=== PATIENT | male | born 1950 | race Caucasian/White ===

== ENCOUNTER 2017-05-26 08:51 | Emergency (ER) | payer OTHER ==
[~2017-05-26] VITALS: Ht 182.9 cm; Wt 85.0 kg
[~2017-05-26 08:51] MED LIST: AZIT250T43 PO; BUPR100CR PO; DEPA500T3 PO; FURO20 PO; LISI-360 PO; POTA10TA48 PO; QUET1TAB65 PO; TRAZ50TA4 PO
[2017-05-26 08:53] VITALS: BP 179/99; PULSE 129; RESP 15; TEMP 98.9; O2SAT 99
[2017-05-26] MEDS ORDERED: BUPR1TAB74 (09:20)
[2017-05-26] MEDS ORDERED: DIVA500T3 PO (09:20)
[2017-05-26] MEDS ORDERED: CARB25TA9 PO (09:20)
[2017-05-26] MEDS ORDERED: LISI10TA3 PO (09:20)
[2017-05-26] MEDS ORDERED: MULTTAB67 PO (09:20)
[2017-05-26] MEDS ORDERED: LEVO50TA4 PO (09:20)
[2017-05-26] MEDS ORDERED: ACETAMINOPHEN/HYDROcodone 325 MG/5 MG TAB PO ONE (09:30)
--- NOTE | 2017-05-26 10:24 | RADRPT ---
EXAM DATE/TIME: 05/26/2017 09:40 [facility] COMPARISON: No previous studies available for comparison. INDICATIONS : Lumbar spine pain, fell MEDICAL HISTORY : None. SURGICAL HISTORY : None. ENCOUNTER: Initial ACUITY: 2 days PAIN SCORE: 9/10 LOCATION: Lumbar spine FINDINGS: Degenerative changes and mild scoliosis of the lumbar spine are noted. Mild compression deformities a re noted involving L5 and L4. No spondylolisthesis or spondylolysis is noted. CONCLUSION: 1. Mild compression deformities involving L5 and L4 of indeterminate ages. 2. Mild scoliosis and degenerative changes of the lumbar spine. Alfred Turpin MD on May 26, 2017 at 10:19 Board Certified Radiologist. This report was verified electronically.
--- NOTE | 2017-05-26 10:25 | RADRPT ---
EXAM DATE/TIME: 05/26/2017 09:40 [facility] COMPARISON: No previous studies available for comparison. INDICATIONS : Evaluate pelvis for trauma, fell MEDICAL HISTORY : None. SURGICAL HISTORY : None. ENCOUNTER: Initial ACUITY: 2 days PAIN SCORE: 0/10 LOCATION: Pelvis FINDINGS: No acute fracture or dislocation is noted. Mild degenerative changes are noted involving hip joints b ilaterally. Mild compression deformities involving L4 and L5 are noted. CONCLUSION: 1. No acute fracture or dislocation of the bony pelvis. 2. Mild compression deformities involving L4 and L5 vertebral bodies. 3. Mild degenerative changes involving the hips bilaterally. Alfred Turpin MD on May 26, 2017 at 10:22 Board Certified Radiologist. This report was verified electronically.
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
[2017-05-26] MEDS ORDERED: CALC200S NASAL (11:19)
[2017-05-26] MEDS ORDERED: TRAM50TA PO (11:19)
[2017-05-26] MEDS ORDERED: IBUP-232 PO (11:19)
[2017-05-26 11:39] VITALS: BP 146/93
== END 2017-05-26 11:40 | disposition home or self-care (01) ==
LOC: NEPD 08:51
DX: S32.040A Wedge compression fracture of fourth lumbar vertebra, initial encounter for closed fracture (principal); W19.XXXA Unspecified fall, initial encounter; Y93.89 Activity, other specified; Y92.199 Unspecified place in other specified residential institution as the place of occurrence of the external cause
CPT/HCPCS: 72110; 72170; 99283

== ENCOUNTER 2017-07-06 14:41 | Emergency (ER) | payer OTHER ==
[~2017-07-06] VITALS: Ht 182.9 cm; Wt 90.0 kg
[~2017-07-06 14:41] MED LIST changes: -AZIT250T43 PO; -BUPR100CR PO; +BUPR1TAB74; +CALC200S NASAL; +CARB25TA9 PO; -DEPA500T3 PO; +DIVA500T3 PO; -FURO20 PO; +IBUP-232 PO; +LEVO50TA4 PO; -LISI-360 PO; +LISI10TA3 PO; +MULTTAB67 PO; -POTA10TA48 PO; -QUET1TAB65 PO; +TRAM50TA PO; -TRAZ50TA4 PO
[2017-07-06 14:47] VITALS: BP 134/70; PULSE 110; RESP 18; TEMP 97.5; O2SAT 98
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
[2017-07-06 15:36] LABS: AUTOMATED NEUTROPHIL # 6.8 TH/MM3 (1.8-7.7); BASOPHIL % 0.2 % (0.0-2.0); EOSINOPHIL # 0.1 TH/MM3 (0-0.4); EOSINOPHIL % 0.6 % (0.0-4.0); HEMATOCRIT 39.8 % (39.0-51.0); HEMOGLOBIN 13.9 GM/DL (13.0-17.0); LYMPH % 11.5 % (9.0-44.0); LYMPHOCYTE # 1.1 TH/MM3 (1.0-4.8); MEAN CELL VOLUME 97.1 FL (80.0-100.0); MEAN CORPUSCULAR HEMOGLOBIN 33.8 PG (27.0-34.0); MEAN CORPUSCULAR HGB CONC 34.9 % (32.0-36.0); MEAN PLATELET VOLUME 7.2 FL (7.0-11.0); MONO % 18.1 % (0.0-8.0); MONOCYTE # 1.8 TH/MM3 (0-0.9); NEUT % 69.6 % (16.0-70.0); PLATELET COUNT 367 TH/MM3 (150-450); RED CELL DISTRIBUTION WIDTH 12.9 % (11.6-17.2); WHITE BLOOD COUNT 9.7 TH/MM3 (4.0-11.0)
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
== END 2017-07-06 18:02 | disposition home or self-care (01) ==
LOC: NEPD 14:41
DX: F43.20 Adjustment disorder, unspecified (principal); G20 Parkinson's disease; F20.9 Schizophrenia, unspecified; F31.9 Bipolar disorder, unspecified; I10 Essential (primary) hypertension
CPT/HCPCS: 85025; 99283